=== PATIENT | female | born 1980 | race Caucasian/White ===

== ENCOUNTER 2018-05-30 19:04 | Observation (INO) ==
[2018-05-30] MEDS ORDERED: Ipratropium/Albuterol Neb 3 ML IH ONE (19:11)
--- NOTE | 2018-05-30 19:12 | Emergency Department Note ---
Disposition Clinical Impression: Uvular edema, Wheezing Disposition: Admitted As Inpatient Condition: Fair General Adult HPI - General Stated complaint: SoB/dizziness/cough Source: patient, EMS Mode of arrival: EMS Limitations: no limitations Nursing Notes Reviewed: Yes Vital Signs Reviewed: Yes - History of Present Illness HPI Narrative: Patient is a 37-year-old female with past medical history including asthma, depression, anxiety presenting with chief complaint of shortness of breath. The patient states she had a first of a bronchial thermoplasty done yesterday by Dr. Hutson. Patient states she went home around 2 PM and was feeling well. She was coughing which has since decreased. This morning, she woke up feeling short of breath that worsens with exertion. She denies chest pain. She states she feels like she gags when she drinks water. Her albuterol treatments were not helping with her shortness of breath. She complains of wheezing. Denies fevers or chills. Presenting here for further evaluation or shortness of breath. - Related Data Home Medications Medication Instructions Recorded Confirmed Albuterol Sulfate [Ventolin Hfa] 2 puff IH QID PRN 05/30/18 05/30/18 Budesonide/Formoterol 160/4.5 2 puff IH BIDR 05/30/18 05/30/18 [Symbicort 160/4.5] Cetirizine HCl 10 mg PO DAILY 05/30/18 05/30/18 Fish Oil/Dha/Epa [Fish Oil 1,200 1 cap PO DAILY 05/30/18 05/30/18 mg Fish Oil] Metformin HCl 500 mg PO BID 05/30/18 05/30/18 Montelukast [Singulair] 10 mg PO HS 05/30/18 05/30/18 RX: ALPRAZolam [Xanax 0.5 MG 1.5 mg PO HS 05/30/18 05/30/18 Tablet] RX: Trazodone HCl 100 mg PO HS 05/30/18 05/30/18 SUMAtriptan succinate [Imitrex] 50 mg PO Q2H PRN 05/30/18 05/30/18 Topiramate [Topamax] 50 mg PO BID 05/30/18 05/30/18 carBAMazepine [Carbamazepine ER] 600 mg PO HS 05/30/18 05/30/18 Allergies Allergy/AdvReac Type Severity Reaction Status Date / Time ibuprofen Allergy Nausea Verified 05/30/18 21:02 latex Allergy Hives Verified 05/30/18 21:02 morphine Allergy Difficulty Verified 05/30/18 21:02 Breathing All systems ED: reviewed and negative except as stated. Review of Systems: As Per HPI Constitutional: Denies: fever, chills Cardiovascular: Denies: chest pain, palpitations Respiratory: Reports: cough, dyspnea Gastrointestinal: Denies: abdominal pain, nausea Genitourinary: Denies: dysuria Musculoskeletal: Denies: back pain Neurological: Denies: headache Past Medical History - Past Medical History Attestation: Yes The following information was validated with the patient. 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 Absent: tenderness - Chest Chest inspection: Present: normal inspection, symmetric chest wall rise - Respiratory Respiratory exam: Present: other (Bilateral expiratory wheezing) - Cardiovascular Cardiovascular exam: Present: regular rate, normal rhythm, normal heart sounds - Abdominal Exam Abdominal exam: Present: soft, Non-Tender. Absent: distention - Extremities Exam Extremities exam: Present: normal inspection, full ROM, normal capillary refill - Neurological Exam Neurological exam: Present: alert, oriented X3, CN II-XII intact, normal gait - Psychiatric Psychiatric exam: Present: normal affect, normal mood - Skin Skin exam: Present: warm, dry, intact, normal color Course Vital Signs Temperature 98.1 F 05/30/18 19:07 Pulse Rate 95 05/30/18 19:07 Respiratory Rate 22 05/30/18 19:07 Blood Pressure 145/86 05/30/18 19:07 O2 Sat by Pulse Oximetry 97 05/30/18 19:07 Temperature 98.1 F 05/30/18 19:07 Pulse Rate 95 05/30/18 19:07 Respiratory Rate 14 05/30/18 19:31 Blood Pressure 145/86 05/30/18 19:07 O2 Sat by Pulse Oximetry 98 05/30/18 19:31 Oxygen Delivery Oxygen Delivery Room Air Medical Decision Making - MDM Narrative Medical decision making narrative: Patient is postop day 1 for bronchial thermoplasty performed by Dr. Hutson. We will obtain chest x-ray and give the patient she will DuoNeb treatments. Patient symptoms may be secondary to bronchial injury from the procedure. Patient is not hypoxic and respiratory rate is 14 at present. Patient may have instrumental versus thermal edema of the uvula. 19:50 Chest x-ray shows no acute cardiopulmonary process. 21:[address] Hutson, Pulmonology. Uvular edema is typically not a c omplication from the bronchial thermoplasty. Will place consult and he will evaluate the patient in the am. Will also give Solu-medrol and admit the patient. 21:[address] Pittman, hospitalist. Will also give the patient pepcid and benadryl. She has been accepted for admission. - Medical Records Medical records reviewed: Yes I reviewed the patient's medical records. - Lab Data Result diagrams: 05/30/18 20:49 05/30/18 20:49 Lab Results 05/30/18 05/30/18 Range/Units 20:49 20:49 WBC 8.8 (4.3-11.1) K/mcL RBC 3.82 (3.82-4.97) M/mcL Hgb 11.7 (11.5-15.4) g/dL Hct 36.9 (35.3-44.9) % MCV 96.6 (83.0-100.0) fL MCH 30.6 (28.0-33.3) pg MCHC 31.7 (31.6-35.5) g/dL RDW 12.5 (11.5-14.5) % Plt Count 244 (140-400) K/mcL MPV 9.5 (9.4-12.4) fL Immature Gran % 0.6 (0-4) % Seg Neutrophils % 50.2 % Lymphocytes % 38.8 % Monocytes % 6.3 % Eosinophils % 3.5 % Basophils % 0.6 % Neutrophils # 4.4 (1.6-8.9) K/mcL Lymphocytes # 3.4 (0.6-4.6) K/mcL Monocytes # 0.6 (0.0-1.3) K/mcL Eosinophils # 0.3 (0.0-0.6) K/mcL Basophils # 0.1 (0.0-0.2) K/mcL Sodium 141 (136-145) mEq/L Potassium 3.9 (3.5-5.1) mEq/L Chloride 105 (98-107) mEq/L Carbon Dioxide 23 (23-29) mEq/L BUN 16 (6-20) mg/dL Creatinine 0.72 (0.60-1.20) mg/dL Est GFR ( Amer) > 60 (> 60) Est GFR (Non-Af Amer) > 60 (> 60) BUN/Creatinine Ratio 22 (6-26) Glucose 102 (70-105) mg/dL Calculated Osmolality 293 (280-300) Calcium 8.7 (8.6-10.3) mg/dL - Radiology Data Radiology results reviewed: Yes I reviewed the patient's radiology results. Chest X-Ray 05/30/18 19:10 IMPRESSION: No acute cardiopulmonary process D/ / Krishna Carcamo / Krishna Carcamo Interpreting Provider: Krishna Carcamo - EKG Data EKG #1 EKG attestation: Yes I reviewed and interpreted this EKG. EKG results narrative: EKG obtained at 1917 shows sinus rhythm with heart rate 81, MI interval 160, QRS duration 101, QTC 437. No ST elevation or depression. Attestation Statement - Attestation Attestation: Dr. Canales note: Patient seen in conjunction with Er Resident Dr Arboleda; please see her charting for complete documentation. I spent [id number] time with the patient and agree with patient's treatment and disposition. Patient had the bronchial therm oplasty procedure done around lunchtime yesterday. Progressive subjective feeling of swelling, and wheezing since this morning. Patient arrives with stable vital signs. There is no occlusion noted on posterior pharyngeal exam. No voice change. She is wheezing on acceleration. Due to the progression of the patient's symptoms and possible thermal injury to proximal airway structures she will be admitted for observation. Symptomatic improvement each time she had DuoNeb's in the ER. Patient admitted in stable and improved condition. X-ray results and blood work have been noted
[2018-05-30] MEDS ORDERED: 0.9 % Sodium Chloride 1,000 ML IVC ONE (20:19)
[2018-05-30 21:01] LABS: Basophils # 0.1 K/mcL (0.0-0.2); Basophils % 0.6 %; Eosinophils # 0.3 K/mcL (0.0-0.6); Eosinophils % 3.5 %; Hematocrit 36.9 % (35.3-44.9); Hemoglobin 11.7 g/dL (11.5-15.4); Immature Granulocytes % 0.6 % (0-4); Lymphocytes # 3.4 K/mcL (0.6-4.6); Lymphocytes % 38.8 %; Mean Corpuscular HGB Conc 31.7 g/dL (31.6-35.5); Mean Corpuscular Hemoglobin 30.6 pg (28.0-33.3); Mean Corpuscular Volume 96.6 fL (83.0-100.0); Mean Platelet Volume 9.5 fL (9.4-12.4); Monocytes # 0.6 K/mcL (0.0-1.3); Monocytes % 6.3 %; Neutrophils # 4.4 K/mcL (1.6-8.9); Platelet Count 244 K/mcL (140-400); Red Blood Count 3.82 M/mcL (3.82-4.97); Red Cell Distribution Width 12.5 % (11.5-14.5); Segmented Neutrophils % 50.2 %
[2018-05-30] MEDS ORDERED: methylPREDNISolone 125 MG/2 ML VIAL IVP ONE (21:15)
[2018-05-30 21:22] LABS: BUN/Creatinine Ratio 22 (6-26); Blood Urea Nitrogen 16 mg/dL (6-20); Calcium 8.7 mg/dL (8.6-10.3); Carbon Dioxide 23 mEq/L (23-29); Chloride 105 mEq/L (98-107); Glucose 102 mg/dL (70-105); Osmolality,Calculated 293 (280-300); Potassium 3.9 mEq/L (3.5-5.1); Sodium 141 mEq/L (136-145); eGFR For Non-African Americans > 60 (> 60)
[2018-05-30] MEDS ORDERED: Ondansetron ODT 4 MG TAB.RAPDIS SL ONE (21:50)
[2018-05-30] MEDS ORDERED: Famotidine 20 MG/2 ML VIAL IVP ONE (21:56)
--- NOTE | 2018-05-30 23:09 | Internal Med History&Physical ---
<LiJann mastbh - Last Filed: 05/31/18 06:02> Date of Encounter: 05/31/18 Time of Encounter: 23:09 Internal Medicine - H&P: HPI Chief complaint: wheezing History of present illness: Ms. Jeffrey is a 37 year old female with past medical history of diabetes, bipolar disorder, depression, asthma who presented to the ER because of wheezing and sore throat. Patient had bronchial thermoplasty done yesterday here at the hospital for her uncontrolled asthma. she endorses that she went back home and was feeling well after the procedure until this afternoon when she was having difficulty getting her food down at lunch . This was followed by shallow breathing and lightheadedness which was continuous in nature. Patient endorses usin her rescue inhaler more frequently which did not help with the symptoms. She denies any recent travels, or changes to her medications. Initial workup in the ED showed that patient vitals were stable with no evide nce of hypoxia, her respiratory rate was 14. Patient had edematous uvula when she first presented to the ED, was given Pepcid and Benadryl which seems to have helped diminish the swelling. Patient was transferred to the ICU for further management. Past Med Surg Social Fam HX - Past Medical History Medical history: asthma Additional medical history: bipolar,depression,anxiety Psychiatric history: anxiety, bipolar, depression - Past Surgical History Surgical History: appendectomy, , orthopedic, other Additional surgical history: ear tubes. tubal ligation - Social History Smoking Status: Never smoker Smokeless Tobacco Status: No Alcohol use: none Drug use: none Internal Medicine - H&P: Meds ALPRAZolam [Xanax 0.5 MG Tablet] 1.5 mg PO HS 05/30/18 [History] Albuterol Sulfate [Ventolin Hfa] 2 puff IH QID PRN 05/30/18 [History] Budesonide/Formoterol 160/4.5 [Symbicort 160/4.5] 2 puff IH BIDR 05/30/18 [History] Cetirizine HCl 10 mg PO DAILY 05/30/18 [History] Fish Oil/Dha/Epa [Fish Oil 1,200 mg Fish Oil] 1 cap PO DAILY 05/30/18 [History] Metformin HCl 500 mg PO BID 05/30/18 [History] Montelukast [Singulair] 10 mg PO HS 05/30/18 [History] SUMAtriptan succinate [Imitrex] 50 mg PO Q2H PRN 05/30/18 [History] Topiramate [Topamax] 50 mg PO BID 05/30/18 [History] Trazodone HCl 100 mg PO HS 05/30/18 [History] carBAMazepine [Carbamazepine ER] 600 mg PO HS 05/30/18 [History] Allergy/AdvReac Type Severity Reaction Status Date / Time ibuprofen Allergy Nausea Verified 05/30/18 21:02 latex Allergy Hives Verified 05/30/18 21:02 morphine Allergy Difficulty Verified 05/30/18 21:02 Breathing All Systems PM: A 10-system review of systems was performed and is negative for pertinent findings except as documented above in the HPI. - Constitutional Constitutional: no fever(s) - EENT Nose, mouth and throat: no mouth pain - Cardiovascular Cardiovascular ROS IM: no chest pain - Respiratory Respiratory: wheezing - Gastrointestinal Gastrointestinal: no abdominal pain - Constitutional Vitals: Temp Pulse Resp BP Pulse Ox 98.1 F 84 16 147/97 97 05/30/18 19:07 05/30/18 22:55 05/30/18 22:55 05/30/18 22:55 05/30/18 22:55 Exam: Gen.: Vitals noted. No acute distress. Alert, awake and oriented * 3 [address], [address], and time, well developed, well-nourished resting comfortably in bed. Pleasant. HEENT: oropharynx clear, Normocephalic, atraumatic, MMM Neck: supple, no JVD, no lymphadenopathy, no carotid bruit. Cardiac: no murmur, +S1/S2, No BLE edema, PMI non-displaced Pulmonary: CTA bilaterally, wheezes especially in the RUL, rales or rhonchi, equal chest expansion, unlabored breathing Abdomen: soft, nontender, BS noted, no guarding, mildly distended. No organomegaly, no pulsatile masses, Skin: warm and dry, no visible lesions. Feels warm, clammy, no rashes, no lesions, no erythema MSK: ROM not assessed. no joint swelling noted, gait not assessed while in bed. Non tender calf or clubbing, no cyanosis/clubbing/ or edema Neuro: A&O, moves all extremities, no focal deficits, sensation intact Psych: Appropriate mood and behavior, normal speech. Internal Med - H&P Results - Labs CBC & Chem 7: 05/30/18 20:49 05/30/18 20:49 Labs: Short CBC 05/30/18 Range/Units 20:49 WBC 8.8 (4.3-11.1) K/mcL Hgb 11.7 (11.5-15.4) g/dL Hct 36.9 (35.3-44.9) % Plt Count 244 (140-400) K/mcL Neutrophils # 4.4 (1.6-8.9) K/mcL BMP 05/30/18 20:49 Sodium 141 Potassium 3.9 Chloride 105 Carbon Dioxide 23 BUN 16 Creatinine 0.72 Glucose 102 Calcium 8.7 - Impressions ITS Impressions Chest X-Ray 05/30/18 19:10 IMPRESSION: No acute cardiopulmonary process D/ / Krishna Carcamo / Krishna Carcamo Interpreting Provider: Krishna Carcamo - Assessment and Plan (1) Uvular edema Current Visit: Yes Status: Acute Assessment and plan: -She presented to the ED with the uvular edema. -Patient denies any recent changes to any medication, no history of hereditary angioedema, no inhalation exposure of any kind -She got Benadryl and Pepcid in the ER -On my physical exam patient's uvular edema seems to be resolving -Continue Benadryl and Pepcid to help with the edema (2) Diabetes Current Visit: Yes Status: Acute Assessment and plan: -Patient has a history of diabetes -She takes Metformin 500 mg by mouth twice a day at home. -currently on low dose SSI - continue to monitor Qualifiers: Qualified Code(s): E11.9 - Type 2 diabetes mellitus without complications (3) Asthma, persistent not controlled Current Visit: No Status: Chronic Assessment and plan: -Patient has a history of asthma. -She uses albuterol and Symbicort at home as bronchodilators -She recently underwent bronchial thermoplasty here at the hospital. -On physical exam patient had some wheezing in the right upper lobe, but doesn't seems to be in flareup - Scheduled Duonebs q4h - Will continue to monitor (4) Depression Current Visit: Yes Status: Acute Assessment and plan: Patient has a history of depression. Will resume home meds once her uvular edema has completely resolved Qualifiers: Qualified Code(s): F32.9 - Major depressive disorder, single episode, unspecified (5) Bipolar disorder Current Visit: Yes Status: Acute Assessment and plan: She has a Hx of Bipolar disorder Will hold her hme meds until she her uvula edema is resolved Qualifiers: Qualified Code(s): F31.9 - Bipolar disorder, unspecified (6) DVT prophylaxis Current Visit: Yes Status: Acute Assessment and plan: scds - Time Spent With Patient Total time spent is greater than 50% in coordination of care (as documented) at patient's floor/unit and/or counseling patient: <Agustin Barbosa Kiel - Last Filed: 05/31/18 07:18> Date of Encounter: 05/30/18 Internal Medicine - H&P: HPI History of present illness: Ms. Jeffrey is a 37 year old female All Systems PM: A 10-system review of systems was performed and is negative for pertinent findings except as documented above in the HPI. - Constitutional Vitals: Temp Pulse Resp BP Pulse Ox 98.0 F 100 16 136/83 96 05/31/18 03:46 05/31/18 06:00 05/31/18 06:00 05/31/18 06:00 05/31/18 06:00 Internal Med - H&P Results - Labs CBC & Chem 7: 05/30/18 20:49 05/30/18 20:49 Labs: Short CBC 05/30/18 Range/Units 20:49 WBC 8.8 (4.3-11.1) K/mcL Hgb 11.7 (11.5-15.4) g/dL Hct 36.9 (35.3-44.9) % Plt Count 244 (140-400) K/mcL Neutrophils # 4.4 (1.6-8.9) K/mcL BMP 05/30/18 20:49 Sodium 141 Potassium 3.9 Chloride 105 Carbon Dioxide 23 BUN 16 Creatinine 0.72 Glucose 102 Calcium 8.7 - Impressions ITS Impressions Chest X-Ray 05/30/18 19:10 IMPRESSION: No acute cardiopulmonary process D/ / Krishna Carcamo / Krishna Carcamo Interpreting Provider: Krishna Carcamo - Time Spent With Patient Total time spent is greater than 50% in coordination of care (as documented) at patient's floor/unit and/or counseling patient: - Attending Attestation I saw and evaluated the patient. I reviewed the residents note, performed my own physical examination and agree with findings and plan as documented in the residents note. Patient seen and examined on 05/30/18. Patient has what appears to be a bruise with swelling of her uvula on exam. Patient and her family has also noticed difference in the pitch of her voice. Oxygen saturation in the high 90's on room air. No stridor on exam. We will continue to monitor closely, consult pulmonology for evaluation in the morning. Continue breathing treatments, benadryl and pepcid. NPO for now until cleared by pulmonology.
[2018-05-31] MEDS ORDERED: Ipratropium/Albuterol Neb 3 ML IH ONE (00:04)
[2018-05-31] MEDS ORDERED: Ketorolac 15 MG/ML VIAL IVP ONE (04:43)
[2018-05-31] MEDS ORDERED: Dextrose Gel 15 GM/37.5 ML TUBE PO PRN ×2 (04:50)
[2018-05-31] MEDS ORDERED: *HR* Dextrose 50 % in Water (Syg) 50 ML SYRINGE IVP PRN (04:50)
[2018-05-31] MEDS ORDERED: D5% in Water 1,000 ML IVC PRN (04:50)
[2018-05-31] MEDS: Famotidine 20 MG/2 ML VIAL IVP SCH ×2 (05:10→17:09)
[2018-05-31] MEDS: Ipratropium/Albuterol Neb 3 ML IH SCH ×6 (05:15→23:53)
[2018-05-31] MEDS: Insulin LISPRO 300 UNITS/3 ML VIAL SQ SCH ×2 (05:25→12:20)
[2018-05-31] MEDS ORDERED: Chloraseptic Spray 177 ML BOTTLE MM PRN (07:50)
[2018-05-31] MEDS ORDERED: predniSONE 20 MG TABLET PO SCH (09:00)
--- NOTE | 2018-05-31 10:02 | Pulmonology Consult Note ---
Date of Encounter: 05/31/18 Time of Encounter: 09:45 Assessment and Plan (1) Uvular edema Current Visit: Yes Status: Acute Discussed with primary team and would have ENT evaluation. It is not clear to me if this is related to the anesthesia. She didn't have any problems when she was discharged home. There is a possibility that it could be injury from food and she still have problems now and she doesn't feel she can manage this at home. Treating her with steroid and H1 valeria is reasonable. (2) Asthma, persistent not controlled Current Visit: No Status: Chronic Patient is status post bronchothermoplasty the for her uncontrolled asthma and I have explained to her that her throat complaints has no relationship with the treatment. I saw patient twice and her mother was present and discussed again with them that the procedure is FDA approved and because her mother thinks this is a trial treatment, which is not, we both agreed to cancel future treatment unless she changed her decision. Discussed with primary team and thanks for consult. Will see patient when she is discharged home. History of Present Illness Consult date: 05/31/18 Requesting physician: John Ordoñez Reason for consult: asthma Chief complaint: Throat Discomfort History of present illness: This is is a pleasant 37 year old female with severe persistent asthma and she recently had bronchothermoplasty for her uncontrolled asthma. She was not intubated for the procedure and she stated she was very hungry and she eat some Della chicken and she felt she could not swallow and she came to ER. Patient stated her wheezing has improved after the procedure. She was discharged with out any complications and she has no history of such problems before. She has no significant hemoptysis and she has her normal tightness. She has been treated with systemic steroid before and after the procedure. She has no history of fever or chills. Past Med Surg Social Fam HX - Past Medical History Medical history: asthma Additional medical history: bipolar,depression,anxiety Psychiatric history: anxiety, bipolar, depression - Past Surgical History Surgical History: appendectomy, , orthopedic, other Additional surgical history: ear tubes. tubal ligation - Social History Smoking Status: Never smoker Smokeless Tobacco Status: No Alcohol use: none Drug use: none Medications and Allergies Albuterol Sulfate [Ventolin Hfa] 2 puff IH QID PRN 05/30/18 [History] Budesonide/Formoterol 160/4.5 [Symbicort 160/4.5] 2 puff IH BIDR 05/30/18 [History] Cetirizine HCl 10 mg PO DAILY 05/30/18 [History] Fish Oil/Dha/Epa [Fish Oil 1,200 mg Fish Oil] 1 cap PO DAILY 05/30/18 [History] Metformin HCl 500 mg PO BID 05/30/18 [History] Montelukast [Singulair] 10 mg PO HS 05/30/18 [History] RX: ALPRAZolam [Xanax 0.5 MG Tablet] 1.5 mg PO HS 05/30/18 [History] RX: Trazodone HCl 100 mg PO HS 05/30/18 [History] SUMAtriptan succinate [Imitrex] 50 mg PO Q2H PRN 05/30/18 [History] Topiramate [Topamax] 50 mg PO BID 05/30/18 [History] carBAMazepine [Carbamazepine ER] 600 mg PO HS 05/30/18 [History] Allergy/AdvReac Type Severity Reaction Status Date / Time ibuprofen Allergy Nausea Verified 05/30/18 21:02 latex Allergy Hives Verified 05/30/18 21:02 morphine Allergy Difficulty Verified 05/30/18 21:02 Breathing All Systems: The remainder of the systems were reviewed and are negative Physical Examination Vital Signs: Vital Signs, Last 4 Hours Temp Pulse Resp BP Pulse Ox 05/31/18 08:10 98.5 F 105 18 146/83 96 05/31/18 07:18 18 97 05/31/18 06:00 100 16 136/83 96 General appearance: appears uncomfortable Eyes: nonicteric ENT: oropharynx erythematous (with old clot on uv) Mallampati (class): 3 Neck: supple Effort: normal Auscultation: bilateral: wheezes Percussion: bilateral: not dull Cardiovascular: regular rate and rhythm Gastrointestinal: normoactive bowel sounds, non-distended Extremities: no cyanosis, edema normal mental status, non-focal exam anxious Results - Laboratory Findings CBC and BMP: 05/30/18 20:49 05/30/18 20:49 - Clinical Findings Intake & Output: Intake & Output 05/30/18 05/31/18 05/31/18 23:59 07:59 15:59 Intake Total 1000 / 1000 0 / 0 Balance 1000 / 1000 0 / 0 Weight 142.428 kg 141.8 kg Consult Discharge Plan - Plan Referrals: Enrike Galloway MD [Primary Care Provider] -
[2018-05-31] MEDS ORDERED: MethylPREDNISolone 40 MG/ML VIAL IVP ONE (10:09)
[2018-05-31] MEDS ORDERED: Ketorolac 30 MG/ML VIAL IVP ONE (11:44)
--- NOTE | 2018-05-31 17:03 | Internal Med Progress Note ---
Hospitalist Progress Note - Encounter Date of Encounter: 05/31/18 Time of Encounter: 07:50 - Subjective Interval History: Patient seen and examined at bedside. Patient states that her shortness of breath feels improved but she continues to have extreme sore throat and difficulty swallowing. She states this all started after eating a quick meal after her bronchial thermoplasty. Denies fever, chills, productive cough - Exam Vitals: Temp Pulse Resp BP Pulse Ox 98.0 F 106 18 144/82 96 05/31/18 11:37 05/31/18 11:37 05/31/18 12:29 05/31/18 11:37 05/31/18 12:29 Exam: Gen.: Alert and oriented 3, no acute distress Oral: Laryngeal edema, ecchymosis and edema of the uvula Heart: Regular rate and rhythm, no murmurs, rubs, gallops Lungs: End expiratory wheezes bilaterally, no rales, rhonchi - Assessment and Plan (1) Uvular edema Current Visit: Yes Status: Acute Assessment and Plan: Patient has pain and swelling of the oropharynx and noted to have ecchymosis of the uvula. Unclear if this is related to trauma. Discussed with pulmonology and we will consult ENT for evaluation. (2) Asthma, persistent not controlled Current Visit: No Status: Chronic Assessment and Plan: She has mild wheezing on exam but otherwise stable, not hypoxic. Given her rece nt bronchial thermoplasty treatments will start steroids with prednisone 40 mg IV every 12 as she is not tolerating by mouth. Transitioned to by mouth for a short course once able to take by mouth (3) Diabetes Current Visit: Yes Status: Acute Assessment and Plan: Sugars under good control. Continue to monitor blood sugars. Continue sliding scale insulin (4) Bipolar disorder Current Visit: Yes Status: Acute Assessment and Plan: Restart home medications once able to take by mouth. - Time Spent with Patient Total time spent is greater than 50% in coordination of care (as documented) at patient's floor/unit and/or counseling patient: Internal Medicine: Result - Labs CBC & Chem 7: 05/30/18 20:49 05/30/18 20:49 Labs: Short CBC 05/30/18 Range/Units 20:49 WBC 8.8 (4.3-11.1) K/mcL Hgb 11.7 (11.5-15.4) g/dL Hct 36.9 (35.3-44.9) % Plt Count 244 (140-400) K/mcL Neutrophils # 4.4 (1.6-8.9) K/mcL BMP 05/30/18 20:49 Sodium 141 Potassium 3.9 Chloride 105 Carbon Dioxide 23 BUN 16 Creatinine 0.72 Glucose 102 Calcium 8.7 - Impressions Impressions Chest X-Ray 05/30/18 19:10 IMPRESSION: No acute cardiopulmonary process D/ / Krishna Carcamo / Krishna Carcamo Interpreting Provider: Krishna Carcamo Consult Discharge Plan - Plan Referrals: Enrike Galloway MD [Primary Care Provider] - (3) Diabetes Qualifiers: Diabetes mellitus type: type 2 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
[2018-05-31] MEDS: *HR* LORazepam 2 MG/ML VIAL IVP PRN ×2 (17:09→23:26)
--- NOTE | 2018-05-31 17:22 | ENT - Consult Note ---
<Diamond Posadas A - Last Filed: 05/31/18 17:20> Date of Encounter: 05/31/18 Time of Encounter: 16:30 Assessment and Plan (1) Uvular edema Status: Acute No uvular edema appreciated on oral examination at this time. Patient with ecchymosis noted to soft palate. Patient has been receiving IV steroids. Previously reported symptoms likely due to local trauma and irritation from LMA that was used during procedure completed yesterday. Would recommend oral steroids at discharge; 40 mg oral prednisone daily for 5 days. (2) Asthma, persistent not controlled Status: Chronic Management per hospitalist and primary care team (3) Odynophagia Status: Acute Nasolaryngoscopy completed at bedside today. Normal exam findings, with widely patent airway. No visualized trauma, erythema, or edema to pharyngeal or laryngeal structures. See procedure note. Patient's reported symptoms of odynophagia and tenderness of the throat likely due to irritation to oral mucosa and uvula by LMA, as well as, positioning of the oropharynx with LMA used for procedure. Recommend oral steroids at dis charge. No further ENT intervention is warranted at this time. ENT is signing off. History of Present Illness Consult date: 05/31/18 Reason for ENT Consult: other (odynophagia) Requesting physician: John Ordoñez History of present illness: Ms. Jeffrey is a 37 year old female with past medical history of diabetes, bipolar disorder, depression, asthma who presented to the ER because of wheezing and sore throat. Patient had bronchial thermoplasty completed yesterday at [facility] by pulmonology for her uncontrolled asthma. Patient reported baseline sore throat following procedure. Patient states that after returning home she became very hungry and quickly ate a chicken sandwich. This was followed by worsening sore throat and reported wheezing. Initial presentation to ED demonstrated stable vitals with no evidence of hypoxia, her respiratory rate was 14. Patient was reported to have edematous uvula upon initial presentation to the ED, and has been given Pepcid, Benadryl, and IV steroids. ENT consult due to patient's reported worsening symptoms of odynophagia and dysphagia. Past Med Surg Social Fam HX - Past Medical History Medical history: asthma Additional medical history: bipolar,depression,anxiety Psychiatric history: anxiety, bipolar, depression - Past Surgical History Surgical History: appendectomy, , orthopedic, other Additional surgical history: ear tubes. tubal ligation - Social History Smoking Status: Never smoker Smokeless Tobacco Status: No Alcohol use: none Drug use: none Medications and Allergies RX: ALPRAZolam [Xanax 0.5 MG Tablet] 1.5 mg PO HS 05/30/18 [History] RX: Albuterol Sulfate [Ventolin Hfa] 2 puff IH QID PRN 05/30/18 [History] RX: Budesonide/Formoterol 160/4.5 [Symbicort 160/4.5] 2 puff IH BIDR 05/30/18 [History] RX: Cetirizine HCl 10 mg PO DAILY 05/30/18 [History] RX: Fish Oil/Dha/Epa [Fish Oil 1,200 mg Fish Oil] 1 cap PO DAILY 05/30/18 [History] RX: Metformin HCl 500 mg PO BID 05/30/18 [History] RX: Montelukast [Singulair] 10 mg PO HS 05/30/18 [History] RX: SUMAtriptan succinate [Imitrex] 50 mg PO Q2H PRN 05/30/18 [History] RX: Topiramate [Topamax] 50 mg PO BID 05/30/18 [History] RX: Trazodone HCl 100 mg PO HS 05/30/18 [History] RX: carBAMazepine [Carbamazepine ER] 600 mg PO HS 05/30/18 [History] RX: Albuterol Neb [Proventil Neb] 2.5 mg IH Q4HR PRN #60 vial.neb 06/01/18 [Rx] predniSONE [PredniSONE] 40 mg PO DAILY #4 tablet 06/01/18 [Rx] Allergy/AdvReac Type Severity Reaction Status Date / Time ibuprofen Allergy Nausea Verified 05/30/18 21:02 latex Allergy Hives Verified 05/30/18 21:02 morphine Allergy Difficulty Verified 05/30/18 21:02 Breathing ENT - ROS - EENT Nose, mouth and throat: dysphagia, odynophagia ENT Exam Initial Vital Signs Temp Pulse Resp BP Pulse Ox 98.1 F 95 22 145/86 97 05/30/18 19:07 05/30/18 19:07 05/30/18 19:07 05/30/18 19:07 05/30/18 19:07 - General physical appearance well developed, well nourished, no distress - Eyes PERRL, normal ocular movement - ENT normal pinna, normal nares, normal mucosa, CN 2-12 grossly intact, Other (Ears: EACs clear bilaterally, TMs normal bilaterally. Nose: Inferior turbinates normal bilaterally, nares patent bilaterally, septum is deviated to the left. Oral: Mucous membranes moist, tongue midline, area of ecchymosis noted to soft palate, uvula midline, no edema or erythema noted. No edema or erythema noted to oropharynx. dentition adequate. ) - Neck trachea midline, no lymphadectomy - Respiratory normal expansion, normal respiratory effort - Psychiatric oriented to time, oriented to person, oriented to place, speech is normal Exam Initial Vital Signs Temp Pulse Resp BP Pulse Ox 98.1 F 95 22 145/86 97 05/30/18 19:07 05/30/18 19:07 05/30/18 19:07 05/30/18 19:07 05/30/18 19:07 Results - Labs 05/30/18 20:49 05/30/18 20:49 Diabetes panel 05/30/18 Range/Units 20:49 Sodium 141 (136-145) mEq/L Potassium 3.9 (3.5-5.1) mEq/L Chloride 105 (98-107) mEq/L Carbon Dioxide 23 (23-29) mEq/L BUN 16 (6-20) mg/dL Creatinine 0.72 (0.60-1.20) mg/dL Glucose 102 (70-105) mg/dL Calcium 8.7 (8.6-10.3) mg/dL Calcium panel 05/30/18 Range/Units 20:49 Calcium 8.7 (8.6-10.3) mg/dL Pituitary panel 05/30/18 Range/Units 20:49 Sodium 141 (136-145) mEq/L Potassium 3.9 (3.5-5.1) mEq/L Chloride 105 (98-107) mEq/L Carbon Dioxide 23 (23-29) mEq/L BUN 16 (6-20) mg/dL Creatinine 0.72 (0.60-1.20) mg/dL Glucose 102 (70-105) mg/dL Calcium 8.7 (8.6-10.3) mg/dL Adrenal panel 05/30/18 Range/Units 20:49 Sodium 141 (136-145) mEq/L Potassium 3.9 (3.5-5.1) mEq/L Chloride 105 (98-107) mEq/L Carbon Dioxide 23 (23-29) mEq/L BUN 16 (6-20) mg/dL Creatinine 0.72 (0.60-1.20) mg/dL Glucose 102 (70-105) mg/dL Calcium 8.7 (8.6-10.3) mg/dL All other labs normal. Consult Discharge Plan - Plan Instructions: Prednisone (By mouth), Soft Diet (DC) Additional Instructions: Please follow-up with your PCP within one week. Please take steroids until complete. Please resume your home medications. Please return for any new or worsening symptoms. Referrals: Enrike Galloway MD [Primary Care Provider] - 06/07/18 3:30 pm () Prescriptions: RX: Albuterol Neb [Proventil Neb] 2.5 mg IH Q4HR PRN #60 vial.neb PRN Reason: Shortness Of Breath predniSONE [PredniSONE] 40 mg PO DAILY #4 tablet <Herber Funes R - Last Filed: 06/01/18 15:48> Date of Encounter: 06/01/18 Assessment and Plan (1) Asthma, persistent not controlled Status: Chronic (2) Uvular edema Status: Acute (3) Odynophagia Status: Acute ENT Exam Initial Vital Signs Temp Pulse Resp BP Pulse Ox 98.1 F 95 22 145/86 97 05/30/18 19:07 05/30/18 19:07 05/30/18 19:07 05/30/18 19:07 05/30/18 19:07 Exam Initial Vital Signs Temp Pulse Resp BP Pulse Ox 98.1 F 95 22 145/86 97 05/30/18 19:07 05/30/18 19:07 05/30/18 19:07 05/30/18 19:07 05/30/18 19:07 Results - Labs 05/30/18 20:49 05/30/18 20:49 Diabetes panel 06/01/18 Range/Units 05:33 Hemoglobin A1c 5.6 ( - 5.6) % All other labs normal. - Attending Attestation This patient was seen by myself independent of the nurse practitioner. This is a 37-year-old female who presented to the emergency department with a chief complaint of uvular swelling, and odynophagia. She is status post thermal bronchial plasty for severe asthma. At the time of this procedure, the patient had an airway secured with an LMA. She states that following the procedure she ate a very scalding hot chicken sandwich from [employer] and then began to have sore throat and painful swallowing. She has had no stridor. On physical exam, the patient is lying in a semi-recumbent position and breathing quietly. Her respiratory effort is normal and symmetric. On physical exam, the uvula is mildly edematous and does demonstrate ecchymosis. And NPL scope was performed at bedside and is documented in a separate procedure note, and showed a grossly patent airway without any evidence of edema. I discussed with the patient that some of the throat pain she is experiencing could largely be impart due to the positioning of the LMA airway device. We also discussed that this device can put traction on the uvula when its being inserted in this is likely the cause of the ecchymosis and the edema. I do recommend that the patient receive a short burst of steroid. We discussed that the airway is grossly patent and there is no evidence of edema that would compromise her airway at this time.
--- NOTE | 2018-05-31 17:28 | Electrocardiograph Report ---
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
[2018-05-31] MEDS: MethylPREDNISolone 40 MG/ML VIAL IVP SCH (20:31)
[2018-06-01] MEDS: Acetaminophen 325 MG TABLET PO PRN ×2 (02:40→11:04)
[2018-06-01] MEDS: Ipratropium/Albuterol Neb 3 ML IH SCH ×3 (04:32→12:14)
[2018-06-01] MEDS: Famotidine 20 MG/2 ML VIAL IVP SCH (05:25)
[2018-06-01] MEDS: MethylPREDNISolone 40 MG/ML VIAL IVP SCH (05:26)
[2018-06-01 06:55] VITALS: BP 166/83
[2018-06-01 09:01] LABS: Estimated Average Glucose 114 mg/dl; Hemoglobin A1C 5.6 %
--- NOTE | 2018-06-01 09:43 | Discharge Summary ---
Date of Encounter: 06/01/18 Time of Encounter: 09:40 - Discharge Diagnosis (1) Uvular edema Priority: Primary Status: Acute (2) Asthma, persistent not controlled Priority: Secondary Status: Chronic (3) Diabetes Priority: Secondary Status: Ruled-out Qualifiers: Diabetes mellitus type: type 2 Diabetes mellitus manager intermediate insulin use: without snf use Diabetes mellitus complication status: without complication Qualified Code(s): E11.9 - Type 2 diabetes mellitus without complications (4) Bipolar disorder Priority: Secondary Status: Chronic Qualifiers: Active/Remission status: remission status unspecified Qualified Code(s): F31.9 - Bipolar disorder, unspecified Hospital course: Ms. Jeffrey is a 37 year old female with history of bipolar disorder and asthma presented with shortness of breath and painful difficulty swallowing after she h ad bronchial thermoplasty several days prior to admission. After her procedure she ate quickly and developed pain with swallowing. She was noted to have uvular ecchymosis and edema. This is most likely related to trauma. She was seen by pulmonology and ENT who felt this was related to trauma and she required no further intervention. She was able to tolerate a soft diet at discharge. Patient will be discharged home in stable condition. Discharge discussed with: patient - Time Spent with Patient Total time spent providing and/or coordinating discharge services: - Discharge Medications Prescriptions: New predniSONE [PredniSONE] 40 mg PO DAILY #4 tablet Continue Albuterol Sulfate [Ventolin Hfa] 2 puff IH QID PRN PRN Reason: Shortness Of Breath ALPRAZolam [Xanax 0.5 MG Tablet] 1.5 mg PO HS Budesonide/Formoterol 160/4.5 [Symbicort 160/4.5] 2 puff IH BIDR carBAMazepine [Carbamazepine ER] 600 mg PO HS Cetirizine HCl 10 mg PO DAILY Fish Oil/Dha/Epa [Fish Oil 1,200 mg Fish Oil] 1 cap PO DAILY Metformin HCl 500 mg PO BID Montelukast [Singulair] 10 mg PO HS SUMAtriptan succinate [Imitrex] 50 mg PO Q2H PRN PRN Reason: Migraine Headache Topiramate [Topamax] 50 mg PO BID Trazodone HCl 100 mg PO HS Home Medications: ALPRAZolam [Xanax 0.5 MG Tablet] 1.5 mg PO HS 05/30/18 [History] Albuterol Sulfate [Ventolin Hfa] 2 puff IH QID PRN 05/30/18 [History] Budesonide/Formoterol 160/4.5 [Symbicort 160/4.5] 2 puff IH BIDR 05/30/18 [History] Cetirizine HCl 10 mg PO DAILY 05/30/18 [History] Fish Oil/Dha/Epa [Fish Oil 1,200 mg Fish Oil] 1 cap PO DAILY 05/30/18 [History] Metformin HCl 500 mg PO BID 05/30/18 [History] Montelukast [Singulair] 10 mg PO HS 05/30/18 [History] SUMAtriptan succinate [Imitrex] 50 mg PO Q2H PRN 05/30/18 [History] Topiramate [Topamax] 50 mg PO BID 05/30/18 [History] Trazodone HCl 100 mg PO HS 05/30/18 [History] carBAMazepine [Carbamazepine ER] 600 mg PO HS 05/30/18 [History] predniSONE [PredniSONE] 40 mg PO DAILY #4 tablet 06/01/18 [Rx] Allergies/Adverse Reactions: Allergy/AdvReac Type Severity Reaction Status Date / Time ibuprofen Allergy Nausea Verified 05/30/18 21:02 latex Allergy Hives Verified 05/30/18 21:02 morphine Allergy Difficulty Verified 05/30/18 21:02 Breathing Date of admission: 05/31/18 00:29 Primary care physician: Enrike Galloway Consults: 05/30/18 21:14 Consult to Pulmonology [CONS] Stat Consulting Provider: [facility] Reason for Consult: s/p bronchial thermoplasty, uvular edema Call Completed: Yes 05/31/18 15:31 Consult to ENT [CONS] Routine Consulting Provider: [facility] Reason for Consult: Sore throat, odontophagia, uvula eccymosis/edema Call Completed: Yes 05/31/18 16:01 Consult to Invasive Line Access Team [CONS] Routine Reason for Consult: poor access Line Type: EPIV Discharging clinician: John Ordoñez Anticipated date of discharge: 06/01/18 - Constitutional Vitals: Temp Pulse Resp BP Pulse Ox 98.2 F 89 16 166/83 94 06/01/18 06:36 06/01/18 06:36 06/01/18 06:36 06/01/18 06:36 06/01/18 06:36 General appearance: Present: A&O X 3, no acute distress Exam: . - ENT Additional comments: Uvula ecchymosis - Respiratory Respiratory exam: Present: wheezes (Mild end expiratory). Absent: rales, rhonchi - Patient Status Disposition: Home, Self-Care Condition: Fair Functional capacity at discharge: independent ambulation Overall status at discharge: patient is progressing back to baseline - Discharge Instructions Follow Up With: Enrike Galloway MD [Primary Care Provider] - (1 week) Forms: ED Satisfaction Letter Additional Instructions: Please follow-up with your PCP within one week. Please take steroids until complete. Please resume your home medications. Please return for any new or worsening symptoms. - Diet and Activity Activity: increase activity as tolerated Diet: other (soft diet, small bites, eat slow)
[2018-06-01] MEDS: *HR* LORazepam 2 MG/ML VIAL IVP PRN (11:04)
== END 2018-06-01 12:02 | disposition home or self-care (01) ==
LOC: EMEROOARM 19:04 → 2SOUTHHOLD 19:04 → SUATTDRO 05-31 00:29 → 2SOUTHHOLD 05-31 00:38 → 3BNU 05-31 17:00
PROVIDERS: ADMIT Pediatrics; ATTEND Internal Medicine

== ENCOUNTER 2019-02-15 19:34 | Observation (INO) ==
[2019-02-15] MEDS ORDERED: *HR* LORazepam 2 MG/ML VIAL IVP ONE ×2 (19:40→23:30)
[2019-02-15] MEDS ORDERED: 0.9 % Sodium Chloride 1,000 ML IVC ONE (19:40)
[2019-02-15 20:40] LABS: Basophils # 0.1 K/mcL (0.0-0.2); Basophils % 0.6 %; Eosinophils # 0.1 K/mcL (0.0-0.6); Eosinophils % 1.5 %; Hematocrit 37.2 % (35.3-44.9); Hemoglobin 12.3 g/dL (11.5-15.4); Immature Granulocytes % 0.3 % (0-4); Lymphocytes # 1.5 K/mcL (0.6-4.6); Lymphocytes % 16.1 %; Mean Corpuscular HGB Conc 33.1 g/dL (31.6-35.5); Mean Corpuscular Hemoglobin 30.1 pg (28.0-33.3); Mean Corpuscular Volume 91.2 fL (83.0-100.0); Mean Platelet Volume 9.6 fL (9.4-12.4); Monocytes # 0.6 K/mcL (0.0-1.3); Monocytes % 6.2 %; Platelet Count 351 K/mcL (140-400); Red Blood Count 4.08 M/mcL (3.82-4.97); Red Cell Distribution Width 12.8 % (11.5-14.5); Segmented Neutrophils % 75.3 %; White Blood Count 9.3 K/mcL (4.3-11.1)
[2019-02-15 20:53] LABS: BUN/Creatinine Ratio 16 (6-26); Blood Urea Nitrogen 11 mg/dL (6-20); Calcium 9.1 mg/dL (8.6-10.3); Carbon Dioxide 24 mEq/L (23-29); Chloride 104 mEq/L (98-107); Glucose 106 mg/dL (70-105); Osmolality,Calculated 286 (280-300); Potassium 4.2 mEq/L (3.5-5.1); Sodium 138 mEq/L (136-145); eGFR For African Americans > 60 (> 60); eGFR For Non-African Americans > 60 (> 60)
[2019-02-15 23:34] LABS: Amphetamine Screen,Urine Negative ng/mL (Cutoff=1000); Barbiturate Screen,Urine Negative ng/mL (Cutoff=200); Benzodiazepines Screen,Urine Negative ng/mL (Cutoff=200); Bilirubin,Urine Small (Negative); Blood,Urine Negative (Negative); Cannabinoid Screen,Urine Negative ng/mL (Cutoff = 50); Clarity,Urine Cloudy (Clear); Cocaine Screen,Urine Negative ng/mL (Cutoff= 300); Color,Urine Yellow (Yellow); Glucose,Urine (UA) Normal (Normal); Ketones,Urine Trace mg/dL (Negative); Leukocyte Esterase,Urine Small (Negative); Nitrite,Urine Negative (Negative); Opiate Screen,Urine Negative ng/mL (Cutoff=300); Phencyclidine Screen,Urine Negative ng/mL (Cutoff=25); Protein,Urine Negative (Neg-Trace); Specific Gravity,Urine 1.028 (1.010-1.025); Urobilinogen,Urine Normal (Normal)
[2019-02-15 23:37] LABS: Bacteria,Urine None Seen per hpf (None-Few); RBC,Urine 0-3 per hpf (0-3); Squamous Epithelial Cell,Urine Many per lpf (None-Few)
[2019-02-16] MEDS ORDERED: Naloxone 0.4 MG/ML INJ IVP PRN ×2 (02:03→04:39)
[2019-02-16] MEDS ORDERED: Ondansetron ODT 4 MG TAB.RAPDIS SL PRN (02:03)
[2019-02-16] MEDS ORDERED: Acetaminophen 325 MG TABLET PO PRN (02:03)
[2019-02-16] MEDS ORDERED: *HR* LORazepam 2 MG/ML VIAL ONE (04:21)
[2019-02-16] MEDS ORDERED: Ondansetron 4 MG/2 ML VIAL ONE (04:23)
[2019-02-16] MEDS ORDERED: *HR* LORazepam 2 MG/ML VIAL IVP ONE ×2 (04:37)
[2019-02-16 05:02] LABS: Alanine Aminotransferase 30 Units/L (7-52); Albumin 3.9 g/dL (3.5-5.7); Albumin/Globulin Ratio 1.5 (1.1-2.2); Alkaline Phosphatase 91 Units/L (34-104); Aspartate Amino Transferase 17 Units/L (13-39); BUN/Creatinine Ratio 23 (6-26); Bilirubin,Total 0.6 mg/dL (0.3-1.0); Blood Urea Nitrogen 14 mg/dL (6-20); Carbon Dioxide 23 mEq/L (23-29); Chloride 106 mEq/L (98-107); Globulin 2.6 g/dL (2.4-3.5); Glucose 91 mg/dL (70-105); Osmolality,Calculated 286 (280-300); Potassium 3.6 mEq/L (3.5-5.1); Sodium 138 mEq/L (136-145); Total Protein 6.5 g/dL (6.4-8.9); eGFR For African Americans > 60 (> 60); eGFR For Non-African Americans > 60 (> 60)
[2019-02-16] MEDS: *HR* Heparin 5,000 UNIT/ML VIAL SQ SCH ×2 (06:38→18:59)
[2019-02-16 16:21] LABS: Folate > 22.3 ng/mL (3.0-16.0); Vitamin B12 796 pg/mL (250-1100)
[2019-02-16] MEDS: D5% in 0.45% NACL 1,000 ML IVC SCH ×2 (17:11→22:26)
[2019-02-17] MEDS: *HR* Heparin 5,000 UNIT/ML VIAL SQ SCH ×2 (05:22→18:43)
[2019-02-17] MEDS: D5% in 0.45% NACL 1,000 ML IVC SCH ×2 (12:58→18:55)
[2019-02-17] MEDS ORDERED: Ketorolac 15 MG/ML VIAL IVP ONE (17:55)
[2019-02-17 18:38] LABS: Hematocrit 38.4 % (35.3-44.9); Hemoglobin 12.9 g/dL (11.5-15.4); Mean Corpuscular HGB Conc 33.6 g/dL (31.6-35.5); Mean Corpuscular Hemoglobin 30.2 pg (28.0-33.3); Mean Corpuscular Volume 89.9 fL (83.0-100.0); Mean Platelet Volume 9.4 fL (9.4-12.4); Platelet Count 351 K/mcL (140-400); Red Blood Count 4.27 M/mcL (3.82-4.97); Red Cell Distribution Width 12.8 % (11.5-14.5); Segmented Neutrophils % 74.7 %; White Blood Count 10.4 K/mcL (4.3-11.1)
[2019-02-17 18:39] LABS: Basophils % 0.4 %; Eosinophils # 0.2 K/mcL (0.0-0.6); Immature Granulocytes % 0.2 % (0-4); Lymphocytes # 1.6 K/mcL (0.6-4.6); Lymphocytes % 15.8 %; Monocytes # 0.7 K/mcL (0.0-1.3); Monocytes % 6.9 %; Neutrophils # 7.7 K/mcL (1.6-8.9)
[2019-02-17 18:57] LABS: BUN/Creatinine Ratio 28 (6-26); Blood Urea Nitrogen 19 mg/dL (6-20); Calcium 9.3 mg/dL (8.6-10.3); Carbon Dioxide 22 mEq/L (23-29); Chloride 104 mEq/L (98-107); Glucose 96 mg/dL (70-105); Osmolality,Calculated 286 (280-300); Potassium 3.9 mEq/L (3.5-5.1); Sodium 137 mEq/L (136-145); eGFR For African Americans > 60 (> 60); eGFR For Non-African Americans > 60 (> 60)
[2019-02-17] MEDS: *HR* FentaNYL (PF) 100 MCG/2 ML VIAL IVP PRN ×2 (21:58→22:06)
[2019-02-17] MEDS: *HR* LORazepam 2 MG/ML VIAL IVP PRN ×2 (21:59→22:05)
[2019-02-18] MEDS: D5% in 0.45% NACL 1,000 ML IVC SCH (00:46)
[2019-02-18 03:12] LABS: Basophils % 0.4 %; Eosinophils # 0.3 K/mcL (0.0-0.6); Eosinophils % 3.4 %; Hematocrit 37.4 % (35.3-44.9); Hemoglobin 12.3 g/dL (11.5-15.4); Immature Granulocytes % 0.2 % (0-4); Lymphocytes # 2.2 K/mcL (0.6-4.6); Lymphocytes % 24.2 %; Mean Corpuscular HGB Conc 32.9 g/dL (31.6-35.5); Mean Corpuscular Hemoglobin 30.3 pg (28.0-33.3); Mean Corpuscular Volume 92.1 fL (83.0-100.0); Mean Platelet Volume 9.8 fL (9.4-12.4); Monocytes # 0.7 K/mcL (0.0-1.3); Monocytes % 8.2 %; Neutrophils # 5.7 K/mcL (1.6-8.9); Platelet Count 317 K/mcL (140-400); Red Blood Count 4.06 M/mcL (3.82-4.97); Red Cell Distribution Width 12.7 % (11.5-14.5); Segmented Neutrophils % 63.6 %; White Blood Count 8.9 K/mcL (4.3-11.1)
[2019-02-18 03:33] LABS: BUN/Creatinine Ratio 28 (6-26); Blood Urea Nitrogen 19 mg/dL (6-20); Calcium 9.1 mg/dL (8.6-10.3); Carbon Dioxide 23 mEq/L (23-29); Chloride 105 mEq/L (98-107); Glucose 105 mg/dL (70-105); Magnesium 1.9 mg/dL (1.6-2.6); Osmolality,Calculated 287 (280-300); Phosphorous 4.2 mg/dL (2.7-4.5); Potassium 3.5 mEq/L (3.5-5.1); Sodium 137 mEq/L (136-145); eGFR For African Americans > 60 (> 60); eGFR For Non-African Americans > 60 (> 60)
[2019-02-18] MEDS: *HR* LORazepam 2 MG/ML VIAL IVP PRN ×2 (04:48→14:10)
[2019-02-18] MEDS: *HR* Heparin 5,000 UNIT/ML VIAL SQ SCH (04:49)
[2019-02-18 14:34] VITALS: BP 136/85
== END 2019-02-18 16:44 | disposition home or self-care (01) ==
LOC: EMEROOARM 19:34 → 3ANU 19:34
PROVIDERS: ADMIT Student in an Organized Health Care Education/Training Program; ATTEND Student in an Organized Health Care Education/Training Program

== ENCOUNTER 2019-03-15 00:36 | Inpatient (IN) ==
[2019-03-15] MEDS ORDERED: *HR* LORazepam 2 MG/ML VIAL IM ONE (01:03)
[2019-03-15 01:47] LABS: Basophils # 0.1 K/mcL (0.0-0.2); Basophils % 0.3 %; Eosinophils # 0.1 K/mcL (0.0-0.6); Eosinophils % 0.7 %; Hemoglobin 13.3 g/dL (11.5-15.4); Immature Granulocytes % 0.4 % (0-4); Lymphocytes # 1.2 K/mcL (0.6-4.6); Lymphocytes % 7.8 %; Mean Corpuscular HGB Conc 33.3 g/dL (31.6-35.5); Mean Corpuscular Hemoglobin 30.2 pg (28.0-33.3); Mean Corpuscular Volume 90.9 fL (83.0-100.0); Mean Platelet Volume 10.3 fL (9.4-12.4); Monocytes # 1.3 K/mcL (0.0-1.3); Monocytes % 8.6 %; Neutrophils # 12.4 K/mcL (1.6-8.9); Platelet Count 336 K/mcL (140-400); Red Cell Distribution Width 12.9 % (11.5-14.5); Segmented Neutrophils % 82.2 %; White Blood Count 15.1 K/mcL (4.3-11.1)
[2019-03-15 02:00] LABS: INR 1.2; Prothrombin Time 13.3 Seconds (9.4-12.1)
[2019-03-15] MEDS ORDERED: *HR* LORazepam 2 MG/ML VIAL IVP ONE (02:06)
[2019-03-15 02:12] LABS: Alanine Aminotransferase 30 Units/L (7-52); Albumin 4.5 g/dL (3.5-5.7); Albumin/Globulin Ratio 1.8 (1.1-2.2); Alkaline Phosphatase 89 Units/L (34-104); Aspartate Amino Transferase 26 Units/L (13-39); BUN/Creatinine Ratio 23 (6-26); Bilirubin,Direct 0.2 mg/dL (0.0-0.2); Bilirubin,Indirect 0.5 mg/dL (0.0-1.0); Bilirubin,Total 0.7 mg/dL (0.3-1.0); Blood Urea Nitrogen 19 mg/dL (6-20); Calcium 9.4 mg/dL (8.6-10.3); Carbon Dioxide 19 mEq/L (23-29); Chloride 105 mEq/L (98-107); Creatine Kinase 226 Units/L (30-223); Ethanol < 10 mg/dL (Less than 10); Globulin 2.5 g/dL (2.4-3.5); Glucose 95 mg/dL (70-105); Osmolality,Calculated 288 (280-300); Potassium 4.2 mEq/L (3.5-5.1); Sodium 138 mEq/L (136-145); Troponin I < 0.03 ng/mL (< 0.04); eGFR For African Americans > 60 (> 60); eGFR For Non-African Americans > 60 (> 60)
[2019-03-15 03:07] LABS: VBG HCO3 21 mEq/L (21-27); VBG PCO2 38 mmHg (41-51); VBG PH 7.35 pH Units (7.32-7.42); VBG PO2 175 mmHg (25-50)
[2019-03-15 03:17] LABS: Bilirubin,Urine Moderate (Negative); Blood,Urine Negative (Negative); Clarity,Urine Cloudy (Clear); Color,Urine Dark Yellow (Yellow); Glucose,Urine (UA) Normal (Normal); Ketones,Urine 80 mg/dL (Negative); Leukocyte Esterase,Urine Small (Negative); Nitrite,Urine Negative (Negative); PH,Urine 5.5 pH Units (5.0-8.0); Protein,Urine Trace mg/dL (Neg-Trace); Specific Gravity,Urine 1.029 (1.010-1.025); Urobilinogen,Urine Normal (Normal)
[2019-03-15 03:18] LABS: Hyaline Casts,Urine Moderate per lpf (None-Few); RBC,Urine 0-3 per hpf (0-3); Squamous Epithelial Cell,Urine Many per lpf (None-Few)
[2019-03-15 03:27] LABS: Amphetamine Screen,Urine Negative ng/mL (Cutoff=1000); Barbiturate Screen,Urine Negative ng/mL (Cutoff=200); Benzodiazepines Screen,Urine Negative ng/mL (Cutoff=200); Cannabinoid Screen,Urine Negative ng/mL (Cutoff = 50); Cocaine Screen,Urine Negative ng/mL (Cutoff= 300); Opiate Screen,Urine Negative ng/mL (Cutoff=300); Phencyclidine Screen,Urine Negative ng/mL (Cutoff=25)
[2019-03-15 04:03] LABS: Bacteria,Urine Many per hpf (None-Few); Mucus,Urine Moderate per lpf (Few)
[2019-03-15 04:40] LABS: Acetaminophen < 10 mcg/mL (10-20); Salicylate < 2.5 mg/dL (15.0-30.0)
[2019-03-15] MEDS ORDERED: Ondansetron ODT 4 MG TAB.RAPDIS SL PRN (11:46)
[2019-03-15] MEDS: cefTRIAXone 1,000 MG in Water for inj. (sterile) 10 ML IVP SCH (14:34)
[2019-03-15] MEDS: Haloperidol Lactate 5 MG/ML VIAL IVP ONE (22:36)
[2019-03-16] MEDS ORDERED: Haloperidol Lactate 5 MG/ML VIAL IM ONE ×2 (02:37→20:24)
[2019-03-16] MEDS ORDERED: *HR* Promethazine 25 MG/ML VIAL IM ONE ×3 (02:39→20:45)
[2019-03-16] MEDS: Haloperidol Lactate 5 MG/ML VIAL IVP ONE (02:48)
[2019-03-16] MEDS: cefTRIAXone 1,000 MG in Water for inj. (sterile) 10 ML IVP SCH (07:27)
[2019-03-16 10:52] LABS: Basophils % 0.5 %; Eosinophils # 0.2 K/mcL (0.0-0.6); Eosinophils % 2.3 %; Hematocrit 36.3 % (35.3-44.9); Hemoglobin 12.1 g/dL (11.5-15.4); Immature Granulocytes % 0.3 % (0-4); Lymphocytes # 1.6 K/mcL (0.6-4.6); Lymphocytes % 19.9 %; Mean Corpuscular HGB Conc 33.3 g/dL (31.6-35.5); Mean Corpuscular Hemoglobin 30.3 pg (28.0-33.3); Mean Platelet Volume 9.9 fL (9.4-12.4); Monocytes % 12.1 %; Neutrophils # 5.1 K/mcL (1.6-8.9); Platelet Count 279 K/mcL (140-400); Red Blood Count 3.99 M/mcL (3.82-4.97); Red Cell Distribution Width 12.8 % (11.5-14.5); Segmented Neutrophils % 64.9 %; White Blood Count 7.9 K/mcL (4.3-11.1)
[2019-03-16 11:13] LABS: BUN/Creatinine Ratio 28 (6-26); Blood Urea Nitrogen 19 mg/dL (6-20); Calcium 8.9 mg/dL (8.6-10.3); Carbon Dioxide 19 mEq/L (23-29); Chloride 105 mEq/L (98-107); Glucose 87 mg/dL (70-105); Osmolality,Calculated 290 (280-300); Potassium 3.4 mEq/L (3.5-5.1); Sodium 139 mEq/L (136-145); eGFR For African Americans > 60 (> 60); eGFR For Non-African Americans > 60 (> 60)
[2019-03-16] MEDS ORDERED: hydrOXYzine pamoate 25 MG CAPSULE PO PRN (14:30)
[2019-03-16] MEDS: *HR* Heparin 5,000 UNIT/ML VIAL SQ SCH (17:46)
[2019-03-16] MEDS: Budesonide/Formoterol 160/4.5 1 PUFF INH IH SCH (21:08)
[2019-03-16] MEDS: Melatonin 3 MG TABLET PO SCH (21:18)
[2019-03-16] MEDS: Fluticasone Propionate Nasal 50 MCG/SPRAY BOTTLE NS SCH (21:18)
[2019-03-17] MEDS ORDERED: Ziprasidone 10 MG in Water for inj. (sterile) 0.5 ML IM ONE (02:01)
[2019-03-17] MEDS: Dexmedetomidine HCl 400 MCG/100 ML MLS IVC SCH ×4 (04:17→13:49)
[2019-03-17] MEDS: *HR* Heparin 5,000 UNIT/ML VIAL SQ SCH ×3 (06:02→18:00)
[2019-03-17] MEDS: Budesonide/Formoterol 160/4.5 1 PUFF INH IH SCH ×2 (08:00→20:08)
[2019-03-17] MEDS: Ampicillin 2 GM in 0.9 % Sodium Chloride Mini Bag 100 ML IVPB SCH ×3 (10:07→21:34)
[2019-03-17] MEDS: Fluticasone Propionate Nasal 50 MCG/SPRAY BOTTLE NS SCH ×2 (10:08→21:34)
[2019-03-17] MEDS: Loratadine 10 MG TABLET PO SCH (11:30)
[2019-03-17] MEDS: Multivit/Ca/Min/Fe/FA 1 TAB TABLET PO SCH (11:30)
[2019-03-17] MEDS: lamoTRIgine 25 MG TABLET PO SCH (11:30)
[2019-03-17] MEDS ORDERED: *HR* LORazepam 2 MG/ML VIAL IVP ONE ×2 (13:14→19:17)
[2019-03-17 14:58] LABS: Basophils % 0.6 %; Eosinophils # 0.2 K/mcL (0.0-0.6); Eosinophils % 2.5 %; Hematocrit 37.1 % (35.3-44.9); Hemoglobin 12.5 g/dL (11.5-15.4); Immature Granulocytes % 0.3 % (0-4); Lymphocytes # 1.8 K/mcL (0.6-4.6); Mean Corpuscular HGB Conc 33.7 g/dL (31.6-35.5); Mean Corpuscular Hemoglobin 30.3 pg (28.0-33.3); Mean Platelet Volume 10.4 fL (9.4-12.4); Monocytes # 0.7 K/mcL (0.0-1.3); Monocytes % 10.2 %; Neutrophils # 4.1 K/mcL (1.6-8.9); Platelet Count 292 K/mcL (140-400); Red Blood Count 4.12 M/mcL (3.82-4.97); Red Cell Distribution Width 12.6 % (11.5-14.5); Segmented Neutrophils % 60.4 %; White Blood Count 6.9 K/mcL (4.3-11.1)
[2019-03-17 15:08] LABS: BUN/Creatinine Ratio 26 (6-26); Blood Urea Nitrogen 18 mg/dL (6-20); Calcium 9.4 mg/dL (8.6-10.3); Carbon Dioxide 19 mEq/L (23-29); Chloride 103 mEq/L (98-107); Glucose 129 mg/dL (70-105); Osmolality,Calculated 284 (280-300); Potassium 3.8 mEq/L (3.5-5.1); Sodium 135 mEq/L (136-145); eGFR For African Americans > 60 (> 60); eGFR For Non-African Americans > 60 (> 60)
[2019-03-17] MEDS: Melatonin 3 MG TABLET PO SCH (21:34)
[2019-03-18] MEDS ORDERED: *HR* LORazepam 2 MG/ML VIAL IVP ONE (03:05)
[2019-03-18] MEDS: Ampicillin 2 GM in 0.9 % Sodium Chloride Mini Bag 100 ML IVPB SCH ×4 (03:33→20:04)
[2019-03-18 04:43] LABS: Basophils # 0.1 K/mcL (0.0-0.2); Basophils % 0.8 %; Eosinophils # 0.2 K/mcL (0.0-0.6); Hematocrit 36.4 % (35.3-44.9); Hemoglobin 12.2 g/dL (11.5-15.4); Immature Granulocytes % 0.2 % (0-4); Lymphocytes # 1.5 K/mcL (0.6-4.6); Lymphocytes % 23.7 %; Mean Corpuscular HGB Conc 33.5 g/dL (31.6-35.5); Mean Corpuscular Hemoglobin 30.3 pg (28.0-33.3); Mean Corpuscular Volume 90.3 fL (83.0-100.0); Mean Platelet Volume 10.5 fL (9.4-12.4); Monocytes # 0.7 K/mcL (0.0-1.3); Monocytes % 10.8 %; Neutrophils # 3.9 K/mcL (1.6-8.9); Platelet Count 289 K/mcL (140-400); Red Blood Count 4.03 M/mcL (3.82-4.97); Red Cell Distribution Width 12.8 % (11.5-14.5); Segmented Neutrophils % 61.5 %; White Blood Count 6.4 K/mcL (4.3-11.1)
[2019-03-18 05:04] LABS: Alanine Aminotransferase 45 Units/L (7-52); Albumin/Globulin Ratio 1.7 (1.1-2.2); Alkaline Phosphatase 81 Units/L (34-104); Aspartate Amino Transferase 22 Units/L (13-39); BUN/Creatinine Ratio 24 (6-26); Bilirubin,Total 0.6 mg/dL (0.3-1.0); Blood Urea Nitrogen 17 mg/dL (6-20); Calcium 9.1 mg/dL (8.6-10.3); Carbon Dioxide 21 mEq/L (23-29); Chloride 102 mEq/L (98-107); Globulin 2.4 g/dL (2.4-3.5); Glucose 94 mg/dL (70-105); Osmolality,Calculated 281 (280-300); Potassium 3.4 mEq/L (3.5-5.1); Sodium 135 mEq/L (136-145); Total Protein 6.4 g/dL (6.4-8.9); eGFR For African Americans > 60 (> 60); eGFR For Non-African Americans > 60 (> 60)
[2019-03-18] MEDS: *HR* Heparin 5,000 UNIT/ML VIAL SQ SCH ×2 (06:06→16:31)
[2019-03-18] MEDS: lamoTRIgine 25 MG TABLET PO SCH (09:01)
[2019-03-18] MEDS: Loratadine 10 MG TABLET PO SCH (09:01)
[2019-03-18] MEDS: Fluticasone Propionate Nasal 50 MCG/SPRAY BOTTLE NS SCH ×2 (09:01→20:33)
[2019-03-18] MEDS: Multivit/Ca/Min/Fe/FA 1 TAB TABLET PO SCH (09:02)
[2019-03-18] MEDS ORDERED: Acetaminophen 325 MG TABLET PO PRN (09:59)
[2019-03-18] MEDS ORDERED: *HR* LORazepam 2 MG/ML VIAL IVP PRN (10:07)
[2019-03-18] MEDS ORDERED: 0.9 % Sodium Chloride 1,000 ML IVC SCH ×2 (10:15→14:21)
[2019-03-18] MEDS: Budesonide/Formoterol 160/4.5 1 PUFF INH IH SCH ×2 (11:00→20:35)
[2019-03-18] MEDS ORDERED: Potassium Chloride 40 MEQ, Lidocaine 1% 2 ML in 0.9 % Sodium Chloride 500 ML IVPB ONE ×2 (14:12→14:21)
[2019-03-18] MEDS: Dexmedetomidine HCl 400 MCG/100 ML MLS IVC SCH (14:51)
[2019-03-18] MEDS: Acetaminophen 325 MG TABLET PO PRN (16:28)
[2019-03-18] MEDS: *HR* LORazepam 2 MG/ML VIAL IVP PRN (16:33)
[2019-03-18] MEDS: Melatonin 3 MG TABLET PO SCH (20:02)
[2019-03-19 02:48] LABS: BUN/Creatinine Ratio 18 (6-26); Blood Urea Nitrogen 12 mg/dL (6-20); Calcium 8.4 mg/dL (8.6-10.3); Carbon Dioxide 20 mEq/L (23-29); Chloride 108 mEq/L (98-107); Glucose 98 mg/dL (70-105); Osmolality,Calculated 286 (280-300); Potassium 3.6 mEq/L (3.5-5.1); Sodium 138 mEq/L (136-145); eGFR For African Americans > 60 (> 60); eGFR For Non-African Americans > 60 (> 60)
[2019-03-19] MEDS: Ampicillin 2 GM in 0.9 % Sodium Chloride Mini Bag 100 ML IVPB SCH ×5 (03:30→23:10)
[2019-03-19] MEDS: *HR* Heparin 5,000 UNIT/ML VIAL SQ SCH ×2 (06:26→18:09)
[2019-03-19] MEDS: Dexmedetomidine HCl 400 MCG/100 ML MLS IVC SCH (06:30)
[2019-03-19] MEDS: Loratadine 10 MG TABLET PO SCH (09:57)
[2019-03-19] MEDS: lamoTRIgine 25 MG TABLET PO SCH (09:58)
[2019-03-19] MEDS: Multivit/Ca/Min/Fe/FA 1 TAB TABLET PO SCH (09:58)
[2019-03-19] MEDS: Nystatin Cream 15 GM TUBE TP SCH ×2 (09:58→23:11)
[2019-03-19] MEDS: Fluticasone Propionate Nasal 50 MCG/SPRAY BOTTLE NS SCH ×2 (09:59→23:11)
[2019-03-19] MEDS: Acetaminophen 325 MG TABLET PO PRN (10:12)
[2019-03-19] MEDS: *HR* LORazepam 2 MG/ML VIAL IVP PRN (10:12)
[2019-03-19] MEDS: Budesonide/Formoterol 160/4.5 1 PUFF INH IH SCH ×2 (10:45→19:47)
[2019-03-19] MEDS: hydrOXYzine pamoate 25 MG CAPSULE PO PRN (18:57)
[2019-03-19] MEDS: Melatonin 3 MG TABLET PO SCH (22:27)
[2019-03-20] MEDS: Acetaminophen 325 MG TABLET PO PRN ×2 (00:45→09:17)
[2019-03-20] MEDS: *HR* LORazepam 2 MG/ML VIAL IVP PRN ×2 (01:48→15:40)
[2019-03-20] MEDS: Ampicillin 2 GM in 0.9 % Sodium Chloride Mini Bag 100 ML IVPB SCH ×2 (01:57→09:11)
[2019-03-20 02:18] LABS: Basophils # 0.1 K/mcL (0.0-0.2); Basophils % 0.7 %; Eosinophils # 0.2 K/mcL (0.0-0.6); Eosinophils % 1.8 %; Hematocrit 35.9 % (35.3-44.9); Hemoglobin 11.8 g/dL (11.5-15.4); Immature Granulocytes % 0.4 % (0-4); Lymphocytes # 2.1 K/mcL (0.6-4.6); Lymphocytes % 24.8 %; Mean Corpuscular HGB Conc 32.9 g/dL (31.6-35.5); Mean Corpuscular Hemoglobin 30.5 pg (28.0-33.3); Mean Corpuscular Volume 92.8 fL (83.0-100.0); Mean Platelet Volume 10.6 fL (9.4-12.4); Monocytes # 0.8 K/mcL (0.0-1.3); Neutrophils # 5.2 K/mcL (1.6-8.9); Platelet Count 314 K/mcL (140-400); Red Blood Count 3.87 M/mcL (3.82-4.97); Segmented Neutrophils % 62.3 %; White Blood Count 8.3 K/mcL (4.3-11.1)
[2019-03-20 02:49] LABS: BUN/Creatinine Ratio 9 (6-26); Blood Urea Nitrogen 6 mg/dL (6-20); Calcium 8.9 mg/dL (8.6-10.3); Carbon Dioxide 20 mEq/L (23-29); Chloride 107 mEq/L (98-107); Glucose 97 mg/dL (70-105); Osmolality,Calculated 284 (280-300); Potassium 3.6 mEq/L (3.5-5.1); Sodium 138 mEq/L (136-145); eGFR For African Americans > 60 (> 60); eGFR For Non-African Americans > 60 (> 60)
[2019-03-20] MEDS: Budesonide/Formoterol 160/4.5 1 PUFF INH IH SCH ×2 (07:46→19:49)
[2019-03-20] MEDS: *HR* Heparin 5,000 UNIT/ML VIAL SQ SCH ×2 (09:06→17:05)
[2019-03-20] MEDS: Loratadine 10 MG TABLET PO SCH (09:10)
[2019-03-20] MEDS: Multivit/Ca/Min/Fe/FA 1 TAB TABLET PO SCH (09:10)
[2019-03-20] MEDS: lamoTRIgine 25 MG TABLET PO SCH (09:10)
[2019-03-20] MEDS: Fluticasone Propionate Nasal 50 MCG/SPRAY BOTTLE NS SCH ×2 (09:11→23:15)
[2019-03-20] MEDS: Nystatin Cream 15 GM TUBE TP SCH ×2 (09:12→23:22)
[2019-03-20] MEDS: Nitrofurantoin (BID) 100 MG CAPSULE PO SCH (17:01)
[2019-03-20] MEDS: Melatonin 3 MG TABLET PO SCH (23:02)
[2019-03-21] MEDS: Acetaminophen 325 MG TABLET PO PRN ×2 (06:12→20:18)
[2019-03-21] MEDS: *HR* Heparin 5,000 UNIT/ML VIAL SQ SCH ×2 (06:19→16:34)
[2019-03-21] MEDS: Loratadine 10 MG TABLET PO SCH (08:48)
[2019-03-21] MEDS: Multivit/Ca/Min/Fe/FA 1 TAB TABLET PO SCH (08:48)
[2019-03-21] MEDS: lamoTRIgine 25 MG TABLET PO SCH (08:48)
[2019-03-21] MEDS: Nitrofurantoin (BID) 100 MG CAPSULE PO SCH ×2 (08:48→16:34)
[2019-03-21] MEDS: Fluticasone Propionate Nasal 50 MCG/SPRAY BOTTLE NS SCH ×2 (09:05→20:23)
[2019-03-21] MEDS: Nystatin Cream 15 GM TUBE TP SCH ×2 (09:06→20:28)
[2019-03-21] MEDS: Budesonide/Formoterol 160/4.5 1 PUFF INH IH SCH ×2 (11:05→22:19)
[2019-03-21] MEDS: Melatonin 3 MG TABLET PO SCH (20:19)
[2019-03-21] MEDS: *HR* LORazepam 2 MG/ML VIAL IVP PRN (22:57)
[2019-03-22 04:25] LABS: BUN/Creatinine Ratio 12 (6-26); Blood Urea Nitrogen 8 mg/dL (6-20); Calcium 8.9 mg/dL (8.6-10.3); Carbon Dioxide 24 mEq/L (23-29); Chloride 108 mEq/L (98-107); Creatine Kinase 38 Units/L (30-223); Glucose 89 mg/dL (70-105); Magnesium 1.9 mg/dL (1.6-2.6); Osmolality,Calculated 284 (280-300); Phosphorous 4.5 mg/dL (2.7-4.5); Potassium 3.5 mEq/L (3.5-5.1); Sodium 138 mEq/L (136-145); eGFR For African Americans > 60 (> 60); eGFR For Non-African Americans > 60 (> 60)
[2019-03-22] MEDS: *HR* Heparin 5,000 UNIT/ML VIAL SQ SCH ×2 (05:49→18:36)
[2019-03-22] MEDS: Multivit/Ca/Min/Fe/FA 1 TAB TABLET PO SCH (08:54)
[2019-03-22] MEDS: Nitrofurantoin (BID) 100 MG CAPSULE PO SCH ×2 (08:54→16:35)
[2019-03-22] MEDS: Acetaminophen 325 MG TABLET PO PRN ×3 (08:54→23:28)
[2019-03-22] MEDS: Loratadine 10 MG TABLET PO SCH (08:54)
[2019-03-22] MEDS: lamoTRIgine 25 MG TABLET PO SCH (08:54)
[2019-03-22] MEDS: Fluticasone Propionate Nasal 50 MCG/SPRAY BOTTLE NS SCH ×2 (08:55→21:26)
[2019-03-22] MEDS: Budesonide/Formoterol 160/4.5 1 PUFF INH IH SCH ×2 (10:35→21:01)
[2019-03-22] MEDS: Nystatin Cream 15 GM TUBE TP SCH ×2 (16:34→21:34)
[2019-03-22] MEDS: Melatonin 3 MG TABLET PO SCH (21:27)
[2019-03-23] MEDS: hydrOXYzine pamoate 25 MG CAPSULE PO PRN (00:35)
[2019-03-23 01:40] LABS: BUN/Creatinine Ratio 13 (6-26); Blood Urea Nitrogen 9 mg/dL (6-20); Calcium 9.7 mg/dL (8.6-10.3); Carbon Dioxide 21 mEq/L (23-29); Chloride 102 mEq/L (98-107); Glucose 102 mg/dL (70-105); Osmolality,Calculated 281 (280-300); Sodium 136 mEq/L (136-145); eGFR For African Americans > 60 (> 60); eGFR For Non-African Americans > 60 (> 60)
[2019-03-23 04:32] LABS: Hematocrit 36.7 % (35.3-44.9); Hemoglobin 12.3 g/dL (11.5-15.4); Mean Corpuscular HGB Conc 33.5 g/dL (31.6-35.5); Mean Corpuscular Hemoglobin 30.2 pg (28.0-33.3); Mean Corpuscular Volume 90.2 fL (83.0-100.0); Mean Platelet Volume 10.7 fL (9.4-12.4); Platelet Count 290 K/mcL (140-400); Red Blood Count 4.07 M/mcL (3.82-4.97); Red Cell Distribution Width 13.2 % (11.5-14.5); White Blood Count 6.6 K/mcL (4.3-11.1)
[2019-03-23] MEDS: *HR* Heparin 5,000 UNIT/ML VIAL SQ SCH ×2 (06:01→16:53)
[2019-03-23] MEDS: Budesonide/Formoterol 160/4.5 1 PUFF INH IH SCH ×2 (07:57→22:37)
[2019-03-23] MEDS: lamoTRIgine 25 MG TABLET PO SCH (10:09)
[2019-03-23] MEDS: Loratadine 10 MG TABLET PO SCH (10:10)
[2019-03-23] MEDS: Fluticasone Propionate Nasal 50 MCG/SPRAY BOTTLE NS SCH ×2 (10:10→20:21)
[2019-03-23] MEDS: Nystatin Cream 15 GM TUBE TP SCH ×2 (10:10→21:38)
[2019-03-23] MEDS: Multivit/Ca/Min/Fe/FA 1 TAB TABLET PO SCH (10:10)
[2019-03-23] MEDS: Melatonin 3 MG TABLET PO SCH (20:21)
[2019-03-23] MEDS: Acetaminophen 325 MG TABLET PO PRN (20:22)
[2019-03-24] MEDS: *HR* Heparin 5,000 UNIT/ML VIAL SQ SCH ×2 (06:34→17:39)
[2019-03-24] MEDS: Budesonide/Formoterol 160/4.5 1 PUFF INH IH SCH ×2 (08:14→20:49)
[2019-03-24] MEDS: Fluticasone Propionate Nasal 50 MCG/SPRAY BOTTLE NS SCH ×2 (08:58→22:06)
[2019-03-24] MEDS: lamoTRIgine 25 MG TABLET PO SCH (08:58)
[2019-03-24] MEDS: Multivit/Ca/Min/Fe/FA 1 TAB TABLET PO SCH (08:58)
[2019-03-24] MEDS: Loratadine 10 MG TABLET PO SCH (08:59)
[2019-03-24] MEDS: Nystatin Cream 15 GM TUBE TP SCH ×2 (16:34→22:07)
[2019-03-24] MEDS: Melatonin 3 MG TABLET PO SCH (22:07)
[2019-03-25] MEDS: Acetaminophen 325 MG TABLET PO PRN (00:05)
[2019-03-25] MEDS: *HR* Heparin 5,000 UNIT/ML VIAL SQ SCH ×2 (04:49→18:05)
[2019-03-25] MEDS: Fluticasone Propionate Nasal 50 MCG/SPRAY BOTTLE NS SCH ×2 (08:22→20:36)
[2019-03-25] MEDS: Loratadine 10 MG TABLET PO SCH (08:22)
[2019-03-25] MEDS: lamoTRIgine 25 MG TABLET PO SCH (08:22)
[2019-03-25] MEDS: Multivit/Ca/Min/Fe/FA 1 TAB TABLET PO SCH (08:22)
[2019-03-25] MEDS: Budesonide/Formoterol 160/4.5 1 PUFF INH IH SCH ×2 (10:57→19:23)
[2019-03-25] MEDS: Nystatin Cream 15 GM TUBE TP SCH ×2 (15:18→22:27)
[2019-03-25] MEDS: Melatonin 3 MG TABLET PO SCH (20:37)
[2019-03-25] MEDS: hydrOXYzine pamoate 25 MG CAPSULE PO PRN (20:37)
[2019-03-25] MEDS ORDERED: *HR* LORazepam 2 MG/ML VIAL IVP ONE (23:44)
[2019-03-26] MEDS: *HR* Heparin 5,000 UNIT/ML VIAL SQ SCH ×2 (05:29→18:56)
[2019-03-26] MEDS: Budesonide/Formoterol 160/4.5 1 PUFF INH IH SCH ×2 (07:27→20:20)
[2019-03-26] MEDS: Loratadine 10 MG TABLET PO SCH (09:48)
[2019-03-26] MEDS: Acetaminophen 325 MG TABLET PO PRN (09:48)
[2019-03-26] MEDS: Multivit/Ca/Min/Fe/FA 1 TAB TABLET PO SCH (09:48)
[2019-03-26] MEDS: lamoTRIgine 25 MG TABLET PO SCH ×2 (09:48→21:56)
[2019-03-26] MEDS: Fluticasone Propionate Nasal 50 MCG/SPRAY BOTTLE NS SCH ×2 (09:49→21:55)
[2019-03-26] MEDS: Nystatin Cream 15 GM TUBE TP SCH ×2 (10:32→21:56)
[2019-03-26] MEDS: *HR* LORazepam 2 MG/ML VIAL IVP PRN (16:37)
[2019-03-26] MEDS: Melatonin 3 MG TABLET PO SCH (21:56)
[2019-03-27] MEDS: *HR* Heparin 5,000 UNIT/ML VIAL SQ SCH ×2 (05:55→17:13)
[2019-03-27] MEDS: Budesonide/Formoterol 160/4.5 1 PUFF INH IH SCH ×2 (07:43→20:09)
[2019-03-27] MEDS: lamoTRIgine 25 MG TABLET PO SCH ×2 (09:36→21:19)
[2019-03-27] MEDS: Nystatin Cream 15 GM TUBE TP SCH ×2 (09:36→21:24)
[2019-03-27] MEDS: Multivit/Ca/Min/Fe/FA 1 TAB TABLET PO SCH (09:36)
[2019-03-27] MEDS: Fluticasone Propionate Nasal 50 MCG/SPRAY BOTTLE NS SCH ×2 (09:36→21:23)
[2019-03-27] MEDS: Loratadine 10 MG TABLET PO SCH (09:36)
[2019-03-27] MEDS: Melatonin 3 MG TABLET PO SCH (21:19)
[2019-03-28] MEDS: *HR* Heparin 5,000 UNIT/ML VIAL SQ SCH ×2 (06:48→17:18)
[2019-03-28] MEDS: Budesonide/Formoterol 160/4.5 1 PUFF INH IH SCH ×2 (07:17→19:45)
[2019-03-28] MEDS: lamoTRIgine 25 MG TABLET PO SCH ×2 (09:52→20:29)
[2019-03-28] MEDS: Loratadine 10 MG TABLET PO SCH (09:55)
[2019-03-28] MEDS: Nystatin Cream 15 GM TUBE TP SCH ×2 (09:55→22:15)
[2019-03-28] MEDS: Multivit/Ca/Min/Fe/FA 1 TAB TABLET PO SCH (09:55)
[2019-03-28] MEDS: Fluticasone Propionate Nasal 50 MCG/SPRAY BOTTLE NS SCH ×2 (09:55→20:59)
[2019-03-28] MEDS: Melatonin 3 MG TABLET PO SCH (20:29)
[2019-03-29] MEDS: hydrOXYzine pamoate 25 MG CAPSULE PO PRN (04:36)
[2019-03-29] MEDS ORDERED: Ziprasidone 20 MG in Water for inj. (sterile) 1 ML IM ONE (06:52)
[2019-03-29] MEDS: Budesonide/Formoterol 160/4.5 1 PUFF INH IH SCH ×2 (07:47→20:23)
[2019-03-29] MEDS: *HR* Heparin 5,000 UNIT/ML VIAL SQ SCH ×2 (08:56→17:05)
[2019-03-29] MEDS: Loratadine 10 MG TABLET PO SCH (12:23)
[2019-03-29] MEDS: Fluticasone Propionate Nasal 50 MCG/SPRAY BOTTLE NS SCH (12:23)
[2019-03-29] MEDS: Nystatin Cream 15 GM TUBE TP SCH (12:23)
[2019-03-29] MEDS: Multivit/Ca/Min/Fe/FA 1 TAB TABLET PO SCH (12:24)
[2019-03-29] MEDS: *HR* LORazepam 1 MG TABLET PO SCH ×2 (17:05→19:07)
[2019-03-29] MEDS: Acetaminophen 325 MG TABLET PO PRN (19:03)
[2019-03-29] MEDS: ARIPiprazole 5 MG TABLET PO SCH (19:05)
[2019-03-29] MEDS: lamoTRIgine 25 MG TABLET PO SCH (19:07)
[2019-03-29] MEDS: Melatonin 3 MG TABLET PO SCH (20:59)
[2019-03-29] MEDS: *HR* LORazepam 2 MG/ML VIAL IVP PRN (21:00)
[2019-03-30] MEDS: Nystatin Cream 15 GM TUBE TP SCH ×3 (00:11→20:31)
[2019-03-30] MEDS: Fluticasone Propionate Nasal 50 MCG/SPRAY BOTTLE NS SCH ×3 (00:11→20:30)
[2019-03-30] MEDS: *HR* Heparin 5,000 UNIT/ML VIAL SQ SCH ×2 (05:04→16:17)
[2019-03-30] MEDS: Budesonide/Formoterol 160/4.5 1 PUFF INH IH SCH ×2 (07:13→19:57)
[2019-03-30] MEDS: lamoTRIgine 25 MG TABLET PO SCH ×2 (08:28→20:29)
[2019-03-30] MEDS: *HR* LORazepam 1 MG TABLET PO SCH ×3 (08:28→20:30)
[2019-03-30] MEDS: Loratadine 10 MG TABLET PO SCH (08:28)
[2019-03-30] MEDS: Multivit/Ca/Min/Fe/FA 1 TAB TABLET PO SCH (08:28)
[2019-03-30] MEDS: *HR* LORazepam 2 MG/ML VIAL IVP PRN (10:43)
[2019-03-30] MEDS: hydrOXYzine pamoate 25 MG CAPSULE PO PRN ×2 (10:43→22:40)
[2019-03-30] MEDS: Acetaminophen 325 MG TABLET PO PRN ×2 (11:17→22:40)
[2019-03-30] MEDS: ARIPiprazole 5 MG TABLET PO SCH (20:30)
[2019-03-30] MEDS: Melatonin 3 MG TABLET PO SCH (20:30)
[2019-03-30] MEDS ORDERED: Ziprasidone 20 MG in Water for inj. (sterile) 1 ML IM ONE (22:56)
[2019-03-31] MEDS ORDERED: *HR* LORazepam 1 MG TABLET PO ONE (03:08)
[2019-03-31] MEDS: *HR* Heparin 5,000 UNIT/ML VIAL SQ SCH (06:22)
[2019-03-31] MEDS: Budesonide/Formoterol 160/4.5 1 PUFF INH IH SCH (08:03)
[2019-03-31 11:16] VITALS: BP 137/89
[2019-03-31] MEDS: Loratadine 10 MG TABLET PO SCH (11:20)
[2019-03-31] MEDS: *HR* LORazepam 1 MG TABLET PO SCH (11:20)
[2019-03-31] MEDS: Multivit/Ca/Min/Fe/FA 1 TAB TABLET PO SCH (11:20)
[2019-03-31] MEDS: Fluticasone Propionate Nasal 50 MCG/SPRAY BOTTLE NS SCH (11:21)
[2019-03-31] MEDS: Nystatin Cream 15 GM TUBE TP SCH (11:21)
[2019-03-31] MEDS: lamoTRIgine 25 MG TABLET PO SCH (11:25)
== END 2019-03-31 19:49 | disposition home health service (06) | DRG 880 ==
LOC: EMEROOARM 00:36 → 3BNU 00:36 → SUATTDRO 11:21 → 3BNU 12:55 → 2NNU 03-17 03:57 → SUATTDRO 03-17 11:10 → 2NENU 03-18 15:40
PROVIDERS: ADMIT Internal Medicine; ATTEND Family Medicine

== ENCOUNTER 2019-08-10 15:40 | Observation (INO) ==
[2019-08-10] MEDS ORDERED: 0.9 % Sodium Chloride 1,000 ML IVC ONE (15:49)
[2019-08-10] MEDS ORDERED: *HR* FentaNYL (PF) 100 MCG/2 ML VIAL IVP ONE ×2 (16:02→22:03)
[2019-08-10] MEDS ORDERED: Ondansetron 4 MG/2 ML VIAL IVP ONE (16:02)
[2019-08-10] MEDS ORDERED: Isovue-370 500 ML BOTTLE IVP ONE (16:02)
[2019-08-10 16:40] LABS: Basophils % 0.1 %; Eosinophils % 0.1 %; Hematocrit 36.3 % (35.3-44.9); Hemoglobin 11.8 g/dL (11.5-15.4); Immature Granulocytes % 0.4 % (0-4); Lymphocytes # 1.4 K/mcL (0.6-4.6); Lymphocytes % 16.3 %; Mean Corpuscular HGB Conc 32.5 g/dL (31.6-35.5); Mean Corpuscular Volume 92.4 fL (83.0-100.0); Mean Platelet Volume 9.8 fL (9.4-12.4); Monocytes # 0.7 K/mcL (0.0-1.3); Neutrophils # 6.4 K/mcL (1.6-8.9); Platelet Count 247 K/mcL (140-400); Red Blood Count 3.93 M/mcL (3.82-4.97); Segmented Neutrophils % 75.1 %; White Blood Count 8.5 K/mcL (4.3-11.1)
[2019-08-10 17:00] LABS: Alanine Aminotransferase 13 Units/L (7-52); Albumin 3.9 g/dL (3.5-5.7); Albumin/Globulin Ratio 1.6 (1.1-2.2); Alkaline Phosphatase 113 Units/L (34-104); Aspartate Amino Transferase 10 Units/L (13-39); BUN/Creatinine Ratio 19 (6-26); Bilirubin,Direct 0.1 mg/dL (0.0-0.2); Bilirubin,Indirect 0.2 mg/dL (0.0-1.0); Bilirubin,Total 0.3 mg/dL (0.3-1.0); Blood Urea Nitrogen 12 mg/dL (6-20); Calcium 8.8 mg/dL (8.6-10.3); Carbon Dioxide 24 mEq/L (23-29); Chloride 99 mEq/L (98-107); Globulin 2.4 g/dL (2.4-3.5); Glucose 108 mg/dL (70-105); Lipase 15 Units/L (11-82); Osmolality,Calculated 276 (280-300); Potassium 3.5 mEq/L (3.5-5.1); Sodium 133 mEq/L (136-145); Total Protein 6.3 g/dL (6.4-8.9); eGFR For African Americans > 60 (> 60); eGFR For Non-African Americans > 60 (> 60)
[2019-08-10 17:01] LABS: Bilirubin,Urine Negative (Negative); Blood,Urine Negative (Negative); Clarity,Urine Clear (Clear); Color,Urine Light-Yellow (Yellow); Glucose,Urine (UA) Normal (Normal); Ketones,Urine Negative (Negative); Leukocyte Esterase,Urine Negative (Negative); Nitrite,Urine Negative (Negative); Protein,Urine Negative (Neg-Trace); Specific Gravity,Urine 1.015 (1.010-1.025); Urobilinogen,Urine Normal (Normal)
[2019-08-10] MEDS ORDERED: Piperacillin/Tazobactam 4.5 GM in Water for inj. (sterile) 20 ML IVP ONE (22:02)
[2019-08-10] MEDS ORDERED: Piperacillin/Tazobactam 3.375 GM in 0.9 % Sodium Chloride Mini Bag 100 ML IVPB ONE (22:09)
[2019-08-11] MEDS ORDERED: Mag Hydrox/Al Hydrox/Simeth 30 ML UDC PO PRN ×2 (00:27→19:26)
[2019-08-11] MEDS ORDERED: Naloxone 0.4 MG/ML INJ IVP PRN ×2 (00:27→19:26)
[2019-08-11] MEDS ORDERED: *HR* Promethazine 25 MG/ML VIAL IVP PRN ×2 (00:40→19:26)
[2019-08-11] MEDS ORDERED: QUEtiapine Fumarate 100 MG TABLET PO ONE (00:42)
[2019-08-11] MEDS: 0.9 % Sodium Chloride 1,000 ML IVC SCH ×2 (01:27→13:34)
[2019-08-11] MEDS: Ketorolac 15 MG/ML VIAL IVP PRN ×2 (01:30→11:31)
[2019-08-11 02:04] LABS: INR 1.1
[2019-08-11 02:05] LABS: Basophils % 0.1 %; Eosinophils % 0.1 %; Hematocrit 34.4 % (35.3-44.9); Hemoglobin 11.2 g/dL (11.5-15.4); Immature Granulocytes % 0.4 % (0-4); Lymphocytes # 2.1 K/mcL (0.6-4.6); Lymphocytes % 26.6 %; Mean Corpuscular HGB Conc 32.6 g/dL (31.6-35.5); Mean Corpuscular Hemoglobin 30.3 pg (28.0-33.3); Mean Platelet Volume 9.7 fL (9.4-12.4); Monocytes # 0.6 K/mcL (0.0-1.3); Neutrophils # 5.2 K/mcL (1.6-8.9); Platelet Count 228 K/mcL (140-400); Red Cell Distribution Width 13.1 % (11.5-14.5); Segmented Neutrophils % 65.8 %; White Blood Count 7.9 K/mcL (4.3-11.1)
[2019-08-11 02:07] LABS: Activated Partial Thrombo Time 34.8 Seconds (26.0-36.0)
[2019-08-11 02:29] LABS: Alanine Aminotransferase 11 Units/L (7-52); Albumin 3.8 g/dL (3.5-5.7); Albumin/Globulin Ratio 1.7 (1.1-2.2); Alkaline Phosphatase 103 Units/L (34-104); Aspartate Amino Transferase 10 Units/L (13-39); BUN/Creatinine Ratio 17 (6-26); Bilirubin,Total 0.4 mg/dL (0.3-1.0); Blood Urea Nitrogen 10 mg/dL (6-20); Calcium 8.5 mg/dL (8.6-10.3); Carbon Dioxide 23 mEq/L (23-29); Chloride 100 mEq/L (98-107); Cholesterol 149 mg/dL (< 200); Globulin 2.2 g/dL (2.4-3.5); Glucose 90 mg/dL (70-105); HDL Cholesterol 49 mg/dL (40-59); LDL Cholesterol,Calculated 69 mg/dL (< 100); Magnesium 1.8 mg/dL (1.6-2.6); Osmolality,Calculated 279 (280-300); Phosphorous 4.1 mg/dL (2.7-4.5); Potassium 3.4 mEq/L (3.5-5.1); Sodium 135 mEq/L (136-145); Triglycerides 155 mg/dL (< 150); eGFR For African Americans > 60 (> 60); eGFR For Non-African Americans > 60 (> 60)
[2019-08-11] MEDS: Piperacillin/Tazobactam 3.375 GM in 0.9 % Sodium Chloride Mini Bag 100 ML IVPB SCH ×3 (04:49→20:07)
[2019-08-11] MEDS: *HR* Heparin 5,000 UNIT/ML VIAL SQ SCH ×2 (04:50→18:00)
[2019-08-11] MEDS ORDERED: OXcarbazepine 150 MG TABLET PO SCH (09:00)
[2019-08-11] MEDS ORDERED: Budesonide/Formoterol 160/4.5 1 PUFF INH IH SCH (10:00)
[2019-08-11] MEDS ORDERED: *HR* FentaNYL (PF) 100 MCG/2 ML VIAL IVP PRN (16:36)
[2019-08-11] MEDS ORDERED: *HR* HYDROmorphone PF 0.5 MG/0.5 ML SYRINGE IVP PRN (16:36)
[2019-08-11] MEDS ORDERED: Ondansetron 4 MG/2 ML VIAL IVP ONE (16:36)
[2019-08-11] MEDS ORDERED: *HR* Midazolam HCl 2 MG/2 ML VIAL ONE (16:40)
[2019-08-11] MEDS ORDERED: *HR* HYDROMORPHONE 2 MG/ML VIAL ONE (16:40)
[2019-08-11] MEDS ORDERED: *HR* FentaNYL (PF) 100 MCG/2 ML VIAL ONE (16:40)
[2019-08-11] MEDS ORDERED: *HR* Propofol 200 MG/20 ML VIAL IVP ONE (16:41)
[2019-08-11] MEDS: Ringers Solution, Lactated 1,000 ML IVC ONE ×2 (17:35→18:20)
[2019-08-11] MEDS ORDERED: Neostigmine Methylsulfate 3 MG/3 ML SYRINGE ONE (17:41)
[2019-08-11] MEDS ORDERED: Ketorolac 15 MG/ML VIAL IVP PRN (19:26)
[2019-08-11] MEDS: Budesonide/Formoterol 160/4.5 1 PUFF INH IH SCH (19:50)
[2019-08-11] MEDS: OXcarbazepine 150 MG TABLET PO SCH (20:09)
[2019-08-11] MEDS ORDERED: *HR* OxyCODONE Immed Rel 5 MG TABLET PO PRN (20:40)
[2019-08-11] MEDS ORDERED: QUETIAPINE FUMARATE PO SCH (21:00)
[2019-08-11] MEDS ORDERED: QUEtiapine Fumarate 100 MG, QUEtiapine Fumarate 300 MG PO SCH ×2 (21:00)
[2019-08-11] MEDS ORDERED: ARIPiprazole 5 MG TABLET PO SCH ×2 (21:00)
[2019-08-12] MEDS: Piperacillin/Tazobactam 3.375 GM in 0.9 % Sodium Chloride Mini Bag 100 ML IVPB SCH (05:51)
[2019-08-12] MEDS ORDERED: *HR* Heparin 5,000 UNIT/ML VIAL SQ SCH (06:00)
[2019-08-12 06:36] VITALS: BP 138/86
[2019-08-12] MEDS: Budesonide/Formoterol 160/4.5 1 PUFF INH IH SCH (07:47)
[2019-08-12] MEDS: OXcarbazepine 150 MG TABLET PO SCH (08:41)
[2019-08-12] MEDS ORDERED: hydroCHLOROthiazide 25 MG TABLET PO SCH ×2 (09:00)
== END 2019-08-12 12:50 | disposition home or self-care (01) ==
LOC: EMEROOARM 15:40 → 3ANU 15:40 → SUATTDRO 08-11 00:27
PROVIDERS: ADMIT Family Medicine; ATTEND Internal Medicine